=== PATIENT | female | born 1950 | race African-American/Black ===

== ENCOUNTER 2023-05-28 19:01 | Emergency (ER) | payer BC, OTHER ==
[~2023-05-28] VITALS: Ht 160 cm; Wt 55.0 kg
[2023-05-28 19:11] VITALS: O2SAT 100
[2023-05-28] MEDS ORDERED: LIDO700A15 TP (21:48)
[2023-05-28 21:54] VITALS: BP 120/72; PULSE 47; RESP 20; TEMP 97.8
== END 2023-05-28 22:02 | disposition home or self-care (01) ==
LOC: ER 19:01
DX: S70.01XA Contusion of right hip, initial encounter (principal); S40.011A Contusion of right shoulder, initial encounter; M19.90 Unspecified osteoarthritis, unspecified site; Z98.890 Other specified postprocedural states; W18.39XA Other fall on same level, initial encounter; Y93.89 Activity, other specified; Y92.89 Other specified places as the place of occurrence of the external cause; Y99.8 Other external cause status
CPT/HCPCS: 73030; 73090; 73502; 99284

== ENCOUNTER 2023-08-26 12:21 | Emergency (ER) | payer BC, OTHER ==
[~2023-08-26] VITALS: Ht 154.9 cm; Wt 49.0 kg
[~2023-08-26 12:21] MED LIST: LIDO700A15 TP
[2023-08-26 12:24] VITALS: O2SAT 100
[2023-08-26] MEDS: CYCLOBENZAPRINE 10MG TABLET PO ONE (14:30)
[2023-08-26] MEDS ORDERED: CYCL5TAB MT (15:33)
[2023-08-26 16:50] VITALS: BP 141/59; PULSE 74; RESP 16; TEMP 98.6
== END 2023-08-26 17:48 | disposition home or self-care (01) ==
LOC: ER 12:21
DX: S49.91XA Unspecified injury of right shoulder and upper arm, initial encounter (principal); S09.90XA Unspecified injury of head, initial encounter; G89.11 Acute pain due to trauma; W18.39XA Other fall on same level, initial encounter; Y93.89 Activity, other specified; Y92.89 Other specified places as the place of occurrence of the external cause; Y99.8 Other external cause status
CPT/HCPCS: 71250; 72192; 73030; 73700; 99284

== ENCOUNTER 2024-02-01 13:47 | Emergency (ER) | payer BC ==
[~2024-02-01] VITALS: Ht 154.9 cm; Wt 40.0 kg
[~2024-02-01 13:47] MED LIST changes: +CYCL5TAB MT
[2024-02-01 14:09] VITALS: O2SAT 98
[2024-02-01 17:13] LABS: POTASSIUM 3.6 mEq/L (3.5-5.1)
[2024-02-01 17:15] LABS: BASOPHILS % 0.8 % (0.0-2.0); CALCIUM 8.5 mg/dL (8.7-10.4); EOSINOPHILS % 0.8 % (0.0-5.0); HEMATOCRIT. 23.2 % (36.0-48.0); HEMOGLOBIN. 7.7 g/dL (12.0-16.0); LYMPHOCYTES % 37.9 % (20.0-50.0); MEAN CORPUSCULAR HEMOGLOBIN 29.2 pg (28.0-32.0); MEAN CORPUSCULAR HGB CONC 33.2 g/dL (31.0-37.0); MEAN CORPUSCULAR VOLUME 87.9 fL (81.0-99.0); MEAN PLATELET VOLUME 7.9 fl (7.4-10.4); NEUTROPHILS % 49.5 % (40.0-76.0); PLATELET 277 x1000/uL (130-400); RED BLOOD CELL COUNT 2.64 mill/uL (4.2-5.4); RED CELL DISTRIBUTION WIDTH 17.8 % (11.6-14.6); WHITE BLOOD COUNT 4.6 x1000/uL (4.5-11.0)
[2024-02-01 17:19] LABS: CREATININE 1.2 mg/dL (0.6-1.0)
[2024-02-01 18:46] VITALS: BP 105/62; PULSE 89; RESP 16; TEMP 37.00296; O2SAT 98
== END 2024-02-01 18:46 | disposition home or self-care (01) ==
LOC: ER 13:47
DX: N93.9 Abnormal uterine and vaginal bleeding, unspecified (principal); D64.9 Anemia, unspecified; Z98.890 Other specified postprocedural states
CPT/HCPCS: 36415; 80048; 85025; 86850; 86900; 99283

== ENCOUNTER 2024-02-11 12:10 | Emergency (ER) | payer BC ==
[~2024-02-11] VITALS: Ht 160 cm; Wt 58.0 kg
[2024-02-11 12:21] VITALS: BP 97/52; PULSE 51; RESP 18; TEMP 98.2; O2SAT 100
[2024-02-11 13:01] LABS: BASOPHILS % 0.6 % (0.0-2.0); EOSINOPHILS % 0.4 % (0.0-5.0); HEMATOCRIT. 24.1 % (36.0-48.0); HEMOGLOBIN. 8.3 g/dL (12.0-16.0); LYMPHOCYTES % 27.4 % (20.0-50.0); MEAN CORPUSCULAR HEMOGLOBIN 30.9 pg (28.0-32.0); MEAN CORPUSCULAR HGB CONC 34.6 g/dL (31.0-37.0); MEAN CORPUSCULAR VOLUME 89.3 fL (81.0-99.0); MEAN PLATELET VOLUME 6.7 fl (7.4-10.4); MONOCYTES % 8.8 % (2.0-8.0); NEUTROPHILS % 62.8 % (40.0-76.0); PLATELET 468 x1000/uL (130-400); RED CELL DISTRIBUTION WIDTH 18.3 % (11.6-14.6); WHITE BLOOD COUNT 7.6 x1000/uL (4.5-11.0)
[2024-02-11 13:05] LABS: CHLORIDE 112 mEq/L (98-107); POTASSIUM 3.3 mEq/L (3.5-5.1); SODIUM 141 mEq/L (136-145)
[2024-02-11 13:06] LABS: CARBON DIOXIDE 22 mEq/L (21-32)
[2024-02-11 13:07] LABS: CALCIUM 8.6 mg/dL (8.7-10.4)
[2024-02-11 13:11] LABS: CREATININE 0.8 mg/dL (0.6-1.0)
[2024-02-11 13:12] LABS: GLUCOSE 84 mg/dL (70-105); UREA NITROGEN BLOOD 13 mg/dL (9-23)
== END 2024-02-11 14:28 | disposition home or self-care (01) ==
LOC: ER 12:10
DX: Z96.649 Presence of unspecified artificial hip joint (principal); Z85.41 Personal history of malignant neoplasm of cervix uteri
CPT/HCPCS: 36415; 80048; 85025; 99283